=== PATIENT | female | born 1995 | race Hispanic/Latino ===

== ENCOUNTER 2024-12-15 22:29 | Emergency (ER) | payer SELFPAY ==
[2024-12-15] MEDS ORDERED: METHYLPREDNISOLONE 125 MG INJ ONE (22:41)
[2024-12-15] MEDS ORDERED: ALBUTEROL 2.5 MG/3 ML NEB SOL ONE (22:41)
[2024-12-15] MEDS ORDERED: IPRATROPIUM BROM 0.5MG/2.5ML ONE (22:41)
[2024-12-15] MEDS ORDERED: MAGNESIUM SULFATE 1 gm IVPB 1 GM/100 ML BAG IV ONE (22:42)
--- NOTE | 2024-12-16 00:15 | EDPHYS ---
Physician Documentation [facility] Name: Odalys Villalta Age: 29 yrs Sex: Female : 1995 Arrival Date: 12/15/2024 Time: 22:29 Bed 16 Private MD: ED Physician Celina Juan HPI: 12/15 22:54 This 29 yrs old Female presents to ER via Ambulatory with complaints of Asthma kb Exacerbation, Shortness Of Breath. 22:54 Pt is a 29 year old female with a history of asthma who presents for wheezing and kb shortness of breath that started one week ago. States she has been using her inhaler without relief. Denies fever, runny nose. 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 Flu vaccine is not up to date. - Infectious Disease History:: Denies. - Social history:: Smoking status: Patient denies any tobacco usage or history of. ROS: 22:53 Constitutional: As per HPI kb Exam: 22:53 Constitutional: This is a well developed, well nourished patient who is awake, alert, kb and in no acute distress. Head/Face: Normocephalic, atraumatic. ENT: Moist Mucous membranes Cardiovascular: Regular rate Skin: Warm, dry with normal turgor. Normal color. MS/ Extremity: Pulses equal, no cyanosis. Neurovascular intact. Full, normal range of motion. Neuro: Awake and alert, GCS 15, oriented to person, place, time, and situation. 22:53 Respiratory: mild respiratory distress is noted, Respirations: labored breathing, that is mild, Breath sounds: wheezing: inspiratory expiratory that is moderate, is heard diffusely, Vital Signs: 22:49 BP 143 / 99; Pulse 112; Resp 24; Temp 97.9; Pulse Ox 94% ; Weight 149.69 kg; Height 5 vc1 ft. 4 in. ; Pain 0/10; 23:24 BP 126 / 83; Pulse 84; Resp 18 S; Temp 98.8; Pulse Ox 99% on R/A; aa10 12/16 00:26 BP 138 / 90; Pulse 90; Resp 18; Temp 98.7; Pulse Ox 99% on R/A; aa10 12/15 22:49 Body Mass Index 56.64 (149.69 kg, 162.56 cm) vc1 12/15 22:49 Pain Scale: Adult vc1 MDM: 12/15 22:32 Medical Screening Exam initiated kb 22:54 Differential diagnosis: acute asthma, reactive airway, URI. Data reviewed: vital signs, kb nurses notes. 12/16 00:13 Test considered but Not performed: X-ray: CXR considered but pt states this feels kb similar to previous asthma exacerbations, wheezing is diffuse. . Counseling: I had a detailed discussion with the patient and/or guardian regarding the historical points, exam findings, and any diagnostic results supporting the discharge/admit diagnosis, the need for outpatient follow up, a family practitioner, to return to the emergency department if symptoms worsen or persist or if there are any questions or concerns that arise at home. Response to treatment: the patient's symptoms have markedly improved after treatment. 12/15 22:35 Order name: IV Start; Complete Time: 22:40 kb Administered Medications: 01:52 Discontinued: magnesium sulfate1 grams IVPB once over 1 hrs 12/15 22:53 Drug: Albuterol Inhalation 2.5 mg Inhalation once Route: Inhalation; vc1 23:21 Follow up: Response: No adverse reaction; Marked relief of symptoms 22:53 Drug: Ipratropium Inhalation Aerosol 0.5 mg Inhalation once Route: Inhalation; vc1 23:21 Follow up: Response: No adverse reaction; Marked relief of symptoms 22:57 Drug: MethylPrednisoLONE IVP 125 mg IVP once Route: IVP; Site: left antecubital; vc1 23:21 Follow up: Response: No adverse reaction; Marked relief of symptoms 22:57 Drug: Magnesium Sulfate IVPB 1 grams IVPB once over 1 hrs Route: IVPB; Infused Over: 1 vc1 hrs; Site: left antecubital; 23:21 Follow up: Response: No adverse reaction; Marked relief of symptoms 12/16 02:02 Follow up: Response: No adverse reaction; Marked relief of symptoms aa 00:21 Drug: Albuterol Inhalation 2.5 mg Inhalation once Route: Inhalation; aa10 00:25 Follow up: Response: No adverse reaction; Marked relief of symptoms; Medication aa10 administered at discharge. Disposition Summary: 12/16/24 00:14 Discharge Ordered Notes: Location: Home kb Condition: Stable kb Diagnosis - Unspecified asthma with (acute) exacerbation kb Followup: kb - With: Emergency Department - When: As needed - Reason: Worsening of condition Followup: kb - With: Private Physician - When: 2 - 3 days - Reason: Recheck today's complaints, Continuance of care, Re-evaluation by your physician Discharge Instructions: - Discharge Summary Sheet kb - Asthma, Adult, [id number] kb Forms: - Medication Reconciliation Form kb - Antibiotic Education kb - Prescription Opioid Use kb - Patient Portal Instructions kb - Leadership Thank You Letter kb Prescriptions: - Prednisone 20 mg Oral Tablet - take 1 tablet ORAL route once daily for 5 days; 5 tablet; Refills: 0, Product kb Selection Permitted - Albuterol Sulfate 2.5 mg /3 mL (0.083 %) Inhalation Solution for Nebulization - inhale 1 unit NEBULIZATION route every 8 hours As needed; 1 Unspecified; kb Refills: 0, Product Selection Permitted Signatures: Floresita Ward, JOAN GRIFFITHS-Betsy Childs RN RN vc1 Caroline Telles RN RN aa10
--- NOTE | 2024-12-16 00:15 | ER ---
Nurse's Notes [facility] Name: Odalys Villalta Age: 29 yrs Sex: Female : 1995 Arrival Date: 12/15/2024 Time: 22:29 Bed 16 Private MD: Diagnosis: Unspecified asthma with (acute) exacerbation Presentation: 12/15 22:49 Chief complaint: Patient states: asthma exacerbation times one week. Coronavirus vc1 screen: Client denies travel out of the [place] in the last 14 days. At this time, the client does not indicate any symptoms associated with coronavirus-19. Ebola Screen: Patient negative for fever greater than or equal to 101.5 degrees Fahrenheit, and additional compatible Ebola Virus Disease symptoms Patient denies exposure to infectious person. Patient denies travel to an Ebola-affected area in the 21 days before illness onset. No symptoms or risks identified at this time. Initial Sepsis Screen: Does the patient meet any 2 criteria? No. Patient's initial sepsis screen is negative. Does the patient have a suspected source of infection? No. Patient's initial sepsis screen is negative. Risk Assessment: Do you want to hurt yourself or someone else? Patient reports no desire to harm self or others. Onset of symptoms is unknown. 22:49 Method Of Arrival: Ambulatory vc1 22:49 Acuity: YOSEPH 3 vc1 Triage Assessment: 22:58 General: Appears distressed, uncomfortable, obese, Behavior is cooperative, anxious. vc1 Pain: Denies pain. EENT: No deficits noted. No signs and/or symptoms were reported regarding the EENT system. Neuro: Level of Consciousness is awake, alert, obeys commands, Oriented to person, place, time, situation, Appropriate for age. Cardiovascular: Capillary refill < 3 seconds Patient's skin is warm and dry. Rhythm is sinus tachycardia. Respiratory: Reports shortness of breath at rest labored breathing Breath sounds with wheezes bilaterally. Onset: The symptoms/episode began/occurred one week, the patient has moderate shortness of breath. GI: No deficits noted. No signs and/or symptoms were reported involving the gastrointestinal system. : No deficits noted. No signs and/or symptoms were reported regarding the genitourinary system. Derm: Skin is intact, is healthy with good turgor, Skin is dry, Skin is normal, Skin temperature is warm. Musculoskeletal: Circulation, motion, and sensation intact. Range of motion: intact in all extremities. 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 Flu vaccine is not up to date. - Infectious Disease History:: Denies. - Social history:: Smoking status: Patient denies any tobacco usage or history of. Screenin:57 [facility] ED Fall Risk Assessment (Adult) History of falling in the last 3 months, vc1 including since admission No falls in past 3 months (0 pts) Confusion or Disorientation No (0 pts) Intoxicated or Sedated No (0 pts) Impaired Gait No (0 pts) Mobility Assist Device Used No (0 pt) Altered Elimination No (0 pt) Score/Fall Risk Level 0 - 2 = Low Risk Oriented to surroundings, Maintained a safe environment, Educated pt \T\ family on fall prevention, incl call for assistance when getting out of bed. Abuse screen: Denies threats or abuse. Nutritional screening: No deficits noted. Tuberculosis screening: No symptoms or risk factors identified. Assessment: 23:22 General: Appears in no apparent distress. uncomfortable, Behavior is calm, cooperative, aa10 appropriate for age. Pain: Denies pain. Neuro: No deficits noted. Level of Consciousness is awake, alert, obeys commands, Oriented to person, place, time, situation, Appropriate for age Bottom Scrubber are equal bilaterally Moves all extremities. Speech is normal. Cardiovascular: No deficits noted. Capillary refill < 3 seconds. 23:23 Cardiovascular: No deficits noted. Capillary refill < 3 seconds. Respiratory: Airway is aa10 patent Respiratory effort is even. 23:24 Reassessment: Patient appears in no apparent distress at this time. No changes from aa10 previously documented assessment. Patient and/or family updated on plan of care and expected duration. Pain level reassessed. Patient is alert, oriented x 3, equal unlabored respirations, skin warm/dry/pink. Patient states symptoms have improved. 12/16 00:27 Reassessment: Patient appears in no apparent distress at this time. No changes from aa10 previously documented assessment. Patient and/or family updated on plan of care and expected duration. Pain level reassessed. Patient is alert, oriented x 3, equal unlabored respirations, skin warm/dry/pink. Vital Signs: 12/15 22:49 BP 143 / 99; Pulse 112; Resp 24; Temp 97.9; Pulse Ox 94% ; Weight 149.69 kg; Height 5 vc1 ft. 4 in. ; Pain 0/10; 23:24 BP 126 / 83; Pulse 84; Resp 18 S; Temp 98.8; Pulse Ox 99% on R/A; aa10 12/16 00:26 BP 138 / 90; Pulse 90; Resp 18; Temp 98.7; Pulse Ox 99% on R/A; aa10 12/15 22:49 Body Mass Index 56.64 (149.69 kg, 162.56 cm) vc1 12/15 22:49 Pain Scale: Adult vc1 ED Course: 12/15 22:31 Patient arrived in ED. im 22:31 Floresita Ward FNP-C is PHCP. kb 22:31 Celina Juan MD is Attending Physician. kb 22:50 Triage completed. vc1 22:58 Patient has correct armband on for positive identification. Bed in low position. vc1 Provided Education on: nebs. Pulse ox on. NIBP on. 23:00 Arm band placed on right wrist. vc1 23:23 No provider procedures requiring assistance completed. Initial Neb Treatment Given as aa10 ordered. Inserted saline lock: 18 gauge in left antecubital area, using aseptic technique. 12/16 01:49 IV discontinued. aa10 Administered Medications: 01:52 Discontinued: magnesium sulfate1 grams IVPB once over 1 hrs aa10 12/15 22:53 Drug: Albuterol Inhalation 2.5 mg Inhalation once Route: Inhalation; vc1 23:21 Follow up: Response: No adverse reaction; Marked relief of symptoms aa10 22:53 Drug: Ipratropium Inhalation Aerosol 0.5 mg Inhalation once Route: Inhalation; vc1 23:21 Follow up: Response: No adverse reaction; Marked relief of symptoms aa10 22:57 Drug: MethylPrednisoLONE IVP 125 mg IVP once Route: IVP; Site: left antecubital; vc1 23:21 Follow up: Response: No adverse reaction; Marked relief of symptoms aa10 22:57 Drug: Magnesium Sulfate IVPB 1 grams IVPB once over 1 hrs Route: IVPB; Infused Over: 1 vc1 hrs; Site: left antecubital; 23:21 Follow up: Response: No adverse reaction; Marked relief of symptoms aa10 12/16 02:02 Follow up: Response: No adverse reaction; Marked relief of symptoms aa10 00:21 Drug: Albuterol Inhalation 2.5 mg Inhalation once Route: Inhalation; aa10 00:25 Follow up: Response: No adverse reaction; Marked relief of symptoms; Medication aa10 administered at discharge. Medication: 12/15 23:00 VIS not applicable for this client. vc1 Outcome: 12/16 00:14 Discharge ordered by . kb 00:33 Patient left the ED. aa10 01:48 Discharged to home ambulatory, aa10 01:48 Condition: good 01:48 Discharge instructions given to patient, Instructed on discharge instructions, Signatures: Floresita Ward FNP-C TUNDE-Betsy Childs RN RN vc1 Kemi Bone Ayoku, RN RN aa10 Corrections: (The following items were deleted from the chart) 02:02 01:50 Response: No adverse reaction; Marked relief of symptoms aa10 aa10
[2024-12-16] MEDS ORDERED: ALBUTEROL 2.5 MG/3 ML NEB SOL ONE (00:20)
[2024-12-16 11:05] VITALS: O2SAT 99
[2024-12-16 11:10] VITALS: BP 138/90; TEMP 98.7
== END 2024-12-16 00:33 | disposition home or self-care (01) ==
LOC: ER 22:29
DX: J45.901 Unspecified asthma with (acute) exacerbation (principal)
CPT/HCPCS: 94640; 96374; 96375; 99284; J2919; J3475; J7613; J7644

== ENCOUNTER 2025-01-12 19:22 | Emergency (ER) | payer OTHER, SELFPAY ==
--- OUTSIDE RECORDS SUMMARY | 2025-01-12 19:27 | XMS REPORT | Continuity of Care Document ---
Author Name Unknown Address [address] [facility] [address] [place] [address] [facility] heal[facility] Address [address] 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 Name Role Phone PCP, PATIENT DOES NOT HAVE A Primary Care Physic bre Unavailable ANASTACIO HIGGINS Attending Clinician Unavailable ANASTACIO HIGGINS Attending Clinician Unavailable Anastacio Higgins DO Attending Clinician +[phone] Khalida PARMAR Attending Clinician Unavailable Khalida PARMAR Attending Clinician Unavailable Zahra Ewing MD Attending Clinician +[phone] Khalida Hope Attending Clinician [phone] Mike Almonte NP Attending Clinician +[phone] MIKE ALMONTE Attending Clinician Unavailable KALEE ROBERTSON Attending Clinician Unavailab Kalee Zamora DO Attending Clinician [phone] Pcp, Patient Does Not Have A Attending Clinician JIMMY BABCOCK Attending Clinician Unavaila Jimmy Shafer Attending Clinician [phone] ZAHRA EWING Attending Clinician Unavailable Zahra Ewing MD Attending Clinician +[phone] BREA FISH Attending Clinician Unavailab Brea Keys DO Attending Clinician [phone] CLAYTON DAVIS Attending Clinician Unavailable Clayton Mir Attending Clinician [phone] Doctor Unassigned, [place] Attending Clinician U KALEE Storey Admitting Clinician UnavailJIMMY Garner Admitting Clinician UnavailCLAYTON Israel Admitting Clinician Unavailable Payers Payer Name Policy Type Policy Number Effective Date Expirati on Date Source [facility] Nicole CLEARY [id number] 2024 00:00:00 2024 00:00:00 [place] [id number] 2021 00:00:00 Problems Condition Name Condition Details Condition Category Status Onset Date Resolution Date Last Treatment Date Treating Clinician Comments Source No known active problems No known active problems Disease [facility] Allergies, Adverse Reactions, Alerts Allergy Name Allergy Type Status Severity Reaction(s) Onset Date Inactive Date Treating Clinician Comments Source NO KNOWN ALLERGIE S Drug Class Active [facility] Social History Social Habit Start Date Stop Date Quantity Comments Source Gender identity [facility] Sexual orientation [facility] Exposure to SARS-CoV-2 (event) 2022-12-23 00:00:00 2023-01-02 06:59:00 Not sure [facility] Sex assigned at 1995 00:00:00 1995 00:00:00 [facility] Smoking Status Start Date Stop Date Source Tobacco smoking consumption unknown [facility] Medications Ordered Medication Name Filled Medication Name Start Date Stop Date Current Medication? Ordering Clinician Indication Dosage Frequency Signature (SIG) Comments Components Source ipratropium -albuteroL (DUONEB) 0.5 mg-3 mg(2.5 mg base)/3 mL nebulizer solution 3 mL 2023-11 15:15: 00 11-04 14:12 :00 No 3mL 3 mL, Inhalation , ONCE, 1 dose, On Sat11/04/24 at 0915, Routine [facility] dexAMETHaso ne (DECADRON) tablet 12 mg 2023-11 15:00: 00 11-04 14:13 :00 No 12mg 12 mg, Oral, ONCE NOW, 1 dose, On Sat11/04/24 at 0900, Routine [facility] albuterol (VENTOLIN HFA) 90 mcg/actuati on inhaler 2023-11 00:00: 00 Yes [id number] 2{puff} Inhale 2 Puffs every 6 (six) hours as needed for Wheezing or Shortness of Breath. [facility] losartan 25 mg tablet 2023-11 00:00: 00 02-03 04:59 :00 Yes [id number] 25mg Take 1 tablet by mouth in the morning for 90 days. [facility] losartan (COZAAR) tablet 25 mg 2023-11 05:45: 00 10-25 05:06 :00 No 25mg 25 mg, Oral, ONCE, 1 dose, On Sat10/24/24 at 2345, Routine [facility] dexamethaso ne (DECADRON PHOSPHATE) injection 10 mg 01-27 15:15: 00 01-27 14:12 :00 No 10mg 10 mg, Intramuscu lar, ONCE, 1 dose, On Sat01/28/24 at 1015, Routine [facility] ipratropium -albuteroL (DUONEB) 0.5 mg-3 mg(2.5 mg base)/3 mL nebulizer solution 3 mL 01-27 15:00: 00 01-27 14:07 :00 No 3mL 3 mL, Inhalation , ONCE NOW, 1 dose, On Sat01/28/24 at 1000, Routine [facility] albuterol (VENTOLIN HFA) 90 mcg/actuati on inhaler 01-27 00:00: 00 11-04 00:00 :00 No [id number] 2{puff} Inhale 2 Puffs every 6 (six) hours as needed for Wheezing or Shortness of Breath. [facility] cetirizine 10 mg tablet 01-27 00:00: 00 02-27 04:59 :00 No [id number] 10mg Take 1 tablet by mouth in the morning for 30 days. [facility] losartan-hy drochloroth iazide 50-12.5 mg per tablet 01-27 00:00: 00 02-27 04:59 :00 No [id number] 1{tbl} Take 1 tablet by mouth in the morning for 30 days. [facility] predniSONE 20 mg tablet 01-27 00:00: 00 02-02 04:59 :00 No [id number] 20mg Take 1 tablet by mouth in the morning and 1 tablet in the evening. Do all this for 5 days. [facility] dexamethaso ne (DECADRON) injection 10 mg 2022-11 21:30: 00 11-13 20:51 :00 No 10mg 10 mg, Oral, ONCE, 1 dose, On Sat11/13/23 at 1530, Routine [facility] ibuprofen (IBU) tablet 800 mg 2022-11 21:00: 00 11-13 20:52 :00 No 800mg 800 mg, Oral, ONCE, 1 dose, On Sat11/13/23 at 1500, [facility] ipratropium -albuteroL (DUONEB) 0.5 mg-3 mg(2.5 mg base)/3 mL nebulizer solution 3 mL 2022-11 20:23: 00 Yes 3mL 3 mL, Inhalation , QID, First dose on Sat11/13/23 at 1430, Until Discontinu ed, Routine [facility] benzonatate 100 mg capsule 2022-11 00:00: 00 01-27 00:00 :00 No [id number] 100mg Take 1 capsule by mouth 3 (three) times daily as needed for Cough. [facility] ipratropium -albuteroL (DUONEB) 0.5 mg-3 mg(2.5 mg base)/3 mL nebulizer solution 3 mL 07-24 16:00: 00 07-24 15:19 :00 No 3mL 3 mL, Inhalation , ONCE, 1 dose, On Sat07/24/23 at 1100, [facility] ipratropium -albuteroL (DUONEB) 0.5 mg-3 mg(2.5 mg base)/3 mL nebulizer solution 3 mL 07-24 14:15: 00 07-24 13:17 :00 No 3mL 3 mL, Inhalation , ONCE, 1 dose, On Sat07/24/23 at 0915, [facility] dexamethaso ne sod phos PF injection 10 mg 07-24 13:15: 00 07-24 13:15 :00 No 10mg 10 mg, Oral, ONCE, 1 dose, On Sat07/24/23 at 0815, 1 mL [facility] predniSONE 20 mg tablet 07-24 00:00: 00 01-27 00:00 :00 No [id number] 40mg Take 2 tablets by mouth in the morning. [facility] lisinopriL (PRINIVIL,Z ESTRIL) tablet 5 mg 06-26 19:15: 00 06-26 18:37 :00 No 5mg 5 mg, Oral, ONCE, 1 dose, On Sat06/26/23 at 1415, [facility] albuterol (PROVENTIL) 2.5 mg /3 mL (0.083 %) nebulizer solution 7.5 mg 06-26 18:45: 00 06-26 18:04 :00 No 7.5mg 7.5 mg, Inhalation , ONCE, 1 dose, On Sat06/26/23 at 1345, STAT [facility] ipratropium -albuteroL (DUONEB) 0.5 mg-3 mg(2.5 mg base)/3 mL nebulizer solution 3 mL 06-26 17:15: 00 06-26 16:07 :00 No 3mL 3 mL, Inhalation , ONCE, 1 dose, On Sat06/26/23 at 1215, Routine [facility] albuterol (PROVENTIL) 2.5 mg /3 mL (0.083 %) nebulizer solution 7.5 mg 06-26 17:15: 00 06-26 16:07 :00 No 7.5mg 7.5 mg, Inhalation , ONCE, 1 dose, On Sat06/26/23 at 1215, STAT [facility] predniSONE (DELTASONE) tablet 60 mg 06-26 16:15: 00 06-26 16:48 :00 No 60mg 60 mg, Oral, ONCE, 1 dose, On Sat06/26/23 at 1115, [facility] predniSONE 20 mg tablet 06-26 00:00: 00 Yes [id number] 3 tablets to be taken orally every morning until gone [facility] albuterol 2.5 mg /3 mL (0.083 %) nebulizer solution 06-26 00:00: 00 Yes [id number] 2.5mg Inhale 3 mL every 4 (four) hours as needed for Wheezing, Shortness of Breath or Bronchospa sm. May also nebulize one extra every 6 hours. [facility] losartan 25 mg tablet 06-26 00:00: 00 01-27 00:00 :00 No [id number] 25mg Take 1 tablet by mouth in the morning. [facility] albuterol 2.5 mg /3 mL (0.083 %) nebulizer solution 05-22 00:00: 00 Yes [id number] 2.5mg Inhale 3 mL every 4 (four) hours. May also nebulize one extra every 6 hours. [facility] albuterol 90 mcg/actuati on inhaler 05-22 00:00: 00 01-27 00:00 :00 No [id number] 2{puff} Inhale 2 Puffs every 4 (four) hours as needed for Wheezing or Shortness of Breath. [facility] methylPREDN ISolone (MEDROL, ALIYA,) 4 mg tablets 05-22 00:00: 00 01-27 00:00 :00 No [id number] Take by mouth SEE-INSTRU CTIONS. follow package directions [facility] predniSONE 10 mg tablet 2-16 00:00: 00 01-08 05:59 :00 No [id number] 50mg Take 5 tablets by mouth in the morning for 4 days. [facility] albuterol (PROVENTIL) 2.5 mg /3 mL (0.083 %) nebulizer solution 5 mg 01-02 15:15: 00 01-02 14:30 :00 No 5mg 5 mg, Inhalation , ONCE, 1 dose, On Sat01/02/23 at 0915, [facility] ipratropium (ATROVENT) 0.02 % nebulizer solution 0.5 mg 01-02 14:00: 00 01-02 13:27 :00 No .5mg 0.5 mg, Inhalation , ONCE, 1 dose, On Sat01/02/23 at 0800, [facility] albuterol (PROVENTIL) 2.5 mg /3 mL (0.083 %) nebulizer solution 7.5 mg 01-02 14:00: 00 01-02 13:27 :00 No 7.5mg 7.5 mg, Inhalation , ONCE, 1 dose, On Sat01/02/23 at 0800, [facility] predniSONE (DELTASONE) tablet 50 mg 01-02 13:15: 00 01-02 13:25 :00 No 50mg 50 mg, Oral, ONCE, 1 dose, On Sat01/02/23 at 0715, [facility] albuterol 2.5 mg /3 mL (0.083 %) nebulizer solution 01-02 00:00: 00 05-22 00:00 :00 No [id number] 2.5mg Inhale 3 mL every 4 (four) hours. May also nebulize one extra every 6 hours. [facility] ipratropium -albuteroL (DUONEB) 0.5 mg-3 mg(2.5 mg base)/3 mL nebulizer solution 3 mL 02-02 01:30: 00 02-02 00:45 :00 No 3mL 3 mL, Inhalation , ONCE, 1 dose, On [facility] 02/01/22 at 2030, Routine [facility] ipratropium -albuteroL (DUONEB) 0.5 mg-3 mg(2.5 mg base)/3 mL nebulizer solution 3 mL 02-02 00:45: 00 02-01 23:39 :00 No 3mL 3 mL, Inhalation , ONCE, 1 dose, On Maria Isabel 02/01/22 at 1945, Routine [facility] No known medications 02-01 18:33: 23 No [facility] albuterol 90 mcg/actuati on inhaler 02-01 00:00: 00 Yes [id number] 2{puff} Inhale 2 Puffs every 4 (four) hours as needed for Wheezing or Shortness of Breath. [facility] albuterol 2.5 mg /3 mL (0.083 %) nebulizer solution 02-01 00:00: 00 Yes [id number] 2.5mg Inhale 3 mL every 4 (four) hours. May also nebulize one extra every 6 hours. [facility] predniSONE 20 mg tablet 02-01 00:00: 00 02-11 04:59 :00 No [id number] Take 3 tablets by mouth every morning for 3 days, THEN 2 tablets every morning for 3 days, THEN 1 tablet every morning for 3 days. [facility] predniSONE 10 mg tablet 16 00:00: 00 01-08 05:59 :00 No [id number] 50mg Take 5 tablets by mouth daily for 4 days. [facility] ipratropium (ATROVENT) 0.02 % nebulizer solution 0.5 mg 01-02 17:15: 00 01-02 16:14 :00 No .5mg 0.5 mg, Inhalation , ONCE, 1 dose, On Sat01/02/22 at 1115, [facility] albuterol (PROVENTIL) 2.5 mg /3 mL (0.083 %) nebulizer solution 5 mg 01-02 17:15: 00 01-02 16:14 :00 No 5mg 5 mg, Inhalation , ONCE, 1 dose, On Sat01/02/22 at 1115, [facility] predniSONE (DELTASONE) tablet 50 mg 01-02 17:15: 00 01-02 16:08 :00 No 50mg 50 mg, Oral, ONCE, 1 dose, On Sat01/02/22 at 1115, [facility] albuterol 90 mcg/actuati on inhaler 01-02 00:00: 00 Yes [id number] 2{puff} Inhale 2 Puffs every 4 (four) hours as needed for Wheezing or Shortness of Breath. [facility] predniSONE 10 mg tablet 2020-11 00:00: 00 10-01 05:59 :00 No [id number] 50mg Take 5 tablets by mouth daily for 5 days. [facility] Vital Signs Vital Name Observation Time Observation Value Comments S our Systolic blood pressure 2024-11-04 14:14:00 189 mm[Hg] [facility] acute [facility] Diastolic blood pressure 2024-11-04 14:14:00 114 mm[Hg] [facility] acute hospital Heart rate 2024-11-04 14:14:00 88 /min [facility] Respiratory rate 2024-11-04 14:14:00 18 /min [facility] Oxygen saturation in Arterial blood by Pulse oximetry 2024-11-04 14:14:00 95 /min [facility] acute hospital Body temperature 2024-11-04 14:02:00 37.11 Marni [facility] Body height 2024-11-04 14:02:00 162.6 cm [facility] Body weight 2024-11-04 14:02:00 152.862 kg [facility] BMI 2024-11-04 14:02:00 57.85 kg/m2 [facility] Systolic blood pressure 2024-10-25 04:48:00 183 mm[Hg] [facility] acute hospital Diastolic blood pressure 2024-10-25 04:48:00 108 mm[Hg] General acute hospital Heart rate 2024-10-25 04:48:00 82 /min [facility] Body temperature 2024-10-25 04:48:00 36.89 Marni [facility] Respiratory rate 2024-10-25 04:48:00 18 /min [facility] Oxygen saturation in Arterial blood by Pulse oximetry 2024-10-25 04:48:00 97 /min [facility] Body height 2024-10-25 03:47:00 165.1 cm [facility] Body weight 2024-10-25 03:47:00 152.862 kg [facility] BMI 2024-10-25 03:47:00 56.08 kg/m2 [facility] Respiratory rate 2024-01-28 14:23:00 18 /min [facility] Oxygen saturation in Arterial blood by Pulse oximetry 2024-01-28 14:23:00 98 /min [facility] Systolic blood pressure 2024-01-28 13:59:00 172 mm[Hg] [facility] acute hospital Diastolic blood pressure 2024-01-28 13:59:00 105 mm[Hg] General acute hospital Heart rate 2024-01-28 13:59:00 88 /min [facility] Body temperature 2024-01-28 13:59:00 36.72 Marni [facility] Body height 2024-01-28 13:59:00 162.6 cm [facility] Body weight 2024-01-28 13:59:00 147.419 kg [facility] BMI 2024-01-28 13:59:00 55.79 kg/m2 [facility] Systolic blood pressure 2024-01-27 16:49:00 147 mm[Hg] [facility] acute hospital Diastolic blood pressure 2024-01-27 16:49:00 80 mm[Hg] General acute hospital Heart rate 2024-01-27 16:49:00 89 /min [facility] Body temperature 2024-01-27 16:49:00 36.72 Marni [facility] Respiratory rate 2024-01-27 16:49:00 16 /min [facility] Body height 2024-01-27 16:49:00 162.6 cm [facility] Body weight 2024-01-27 16:49:00 147.419 kg [facility] BMI 2024-01-27 16:49:00 55.79 kg/m2 [facility] Oxygen saturation in Arterial blood by Pulse oximetry 2024-01-27 16:49:00 99 /min [facility] Systolic blood pressure 2023-11-13 21:45:00 125 mm[Hg] [facility] acute hospital Diastolic blood pressure 2023-11-13 21:45:00 77 mm[Hg] General acute hospital Heart rate 2023-11-13 21:45:00 107 /min [facility] Respiratory rate 2023-11-13 21:45:00 16 /min [facility] Oxygen saturation in Arterial blood by Pulse oximetry 2023-11-13 21:45:00 96 /min [facility] hospital Body temperature 2023-11-13 19:21:00 37.72 Marni [facility] Body height 2023-11-13 19:21:00 162.6 cm [facility] Body weight 2023-11-13 19:21:00 146.693 kg [facility] BMI 2023-11-13 19:21:00 55.51 kg/m2 [facility] Systolic blood pressure 2023-07-24 16:00:00 158 mm[Hg] [facility] acute hospital Diastolic blood pressure 2023-07-24 16:00:00 94 mm[Hg] General acute hospital Heart rate 2023-07-24 16:00:00 95 /min [facility] Respiratory rate 2023-07-24 16:00:00 16 /min [facility] Oxygen saturation in Arterial blood by Pulse oximetry 2023-07-24 16:00:00 94 /min [facility] hospital Body temperature 2023-07-24 12:52:00 37 Marni [facility] Body weight 2023-07-24 12:50:00 145.151 kg [facility] BMI 2023-07-24 12:50:00 54.93 kg/m2 [facility] Heart rate 2023-06-26 18:50:00 100 /min [facility] Respiratory rate 2023-06-26 18:50:00 13 /min [facility] Oxygen saturation in Arterial blood by Pulse oximetry 2023-06-26 18:50:00 93 /min [facility] hospital Systolic blood pressure 2023-06-26 18:45:00 169 mm[Hg] General acute hospital Diastolic blood pressure 2023-06-26 18:45:00 121 mm[Hg] [facility] acute hospital Body temperature 2023-06-26 17:30:00 37 Marni [facility] Body height 2023-06-26 15:37:00 162.6 cm [facility] Body weight 2023-06-26 15:37:00 147.056 kg [facility] BMI 2023-06-26 15:37:00 55.65 kg/m2 [facility] Systolic blood pressure 2023-05-22 22:17:00 159 mm[Hg] General acute hospital Diastolic blood pressure 2023-05-22 22:17:00 104 mm[Hg] General acute hospital Heart rate 2023-05-22 22:17:00 87 /min [facility] Body temperature 2023-05-22 22:17:00 37.28 Marni [facility] Respiratory rate 2023-05-22 22:17:00 16 /min [facility] Body height 2023-05-22 22:17:00 165.1 cm [facility] Body weight 2023-05-22 22:17:00 144.244 kg [facility] BMI 2023-05-22 22:17:00 52.92 kg/m2 [facility] Oxygen saturation in Arterial blood by Pulse oximetry 2023-05-22 22:17:00 97 /min [facility] hospital Systolic blood pressure 2023-01-02 15:45:00 145 mm[Hg] General acute hospital Diastolic blood pressure 2023-01-02 15:45:00 78 mm[Hg] General acute hospital Heart rate 2023-01-02 15:45:00 85 /min [facility] Respiratory rate 2023-01-02 15:45:00 15 /min [facility] Oxygen saturation in Arterial blood by Pulse oximetry 2023-01-02 15:45:00 97 /min [facility] acute hospital Body temperature 2023-01-02 13:00:00 36.89 Marni [facility] Body weight 2023-01-02 13:00:00 108.863 kg [facility] BMI 2023-01-02 13:00:00 39.94 kg/m2 [facility] Respiratory rate 2022-02-01 23:39:00 20 /min [facility] Oxygen saturation in Arterial blood by Pulse oximetry 2022-02-01 23:39:00 96 /min [facility] hospital Systolic blood pressure 2022-02-01 22:07:00 158 mm[Hg] General acute hospital Diastolic blood pressure 2022-02-01 22:07:00 110 mm[Hg] General acute hospital Heart rate 2022-02-01 22:07:00 97 /min [facility] Body temperature 2022-02-01 22:07:00 37 Marni [facility] Body weight 2022-02-01 22:07:00 122.471 kg [facility] BMI 2022-02-01 22:07:00 44.93 kg/m2 [facility] Respiratory rate 2022-01-02 16:44:00 20 /min [facility] Oxygen saturation in Arterial blood by Pulse oximetry 2022-01-02 16:44:00 99 /min [facility] acute hospital Systolic blood pressure 2022-01-02 15:24:00 152 mm[Hg] General acute hospital Diastolic blood pressure 2022-01-02 15:24:00 93 mm[Hg] General acute hospital Heart rate 2022-01-02 15:24:00 102 /min [facility] Body temperature 2022-01-02 15:24:00 36.94 Marni [facility] Body weight 2022-01-02 15:24:00 122.471 kg [facility] BMI 2022-01-02 15:24:00 44.93 kg/m2 [facility] Body height 2021-09-25 14:53:00 165.1 cm [facility] Body weight 2021-09-25 14:53:00 122.471 kg [facility] BMI 2021-09-25 14:53:00 44.93 kg/m2 [facility] Systolic blood pressure 2021-09-25 14:52:00 148 mm[Hg] [facility] acute hospital Diastolic blood pressure 2021-09-25 14:52:00 109 mm[Hg] General acute hospital Heart rate 2021-09-25 14:52:00 98 /min [facility] Body temperature 2021-09-25 14:52:00 37.11 Marni [facility] Respiratory rate 2021-09-25 14:52:00 16 /min [facility] Oxygen saturation in Arterial blood by Pulse oximetry 2021-09-25 14:52:00 99 /min [facility] acute hospital Procedures Procedure Date / Time Performed Performing Clinician Source CONSENT/REFUSAL FOR DIAGNOSIS AND TREATMENT 2024-01-28 13:44:04 Doctor Unassigned, [place] [facility] ASSIGNMENT OF BENEFITS 2024-01-27 18:11:08 Docto r Unassigned, [place] [facility] XR FINGERS 2 VW LEFT 2024-01-27 17:59:00 Joe Robertson [facility] NOTICE OF PRIVACY PRACTICES 2024-01-27 16:38:40 Doctor Unassigned, [place] [facility] CONSENT/REFUSAL FOR DIAGNOSIS AND TREATMENT 2024-01-27 16:38:04 Doctor Unassigned, [place] [facility] RAPID INFLUENZA A/B 2023-11-13 20:51:00 Sanjeev Babcock [facility] COVID-19 (ID NOW RAPID TESTING) 2023-11-13 20:51:00 Jimmy Babcock [facility] XR CHEST 2 VW 2023-11-13 20:39:55 Jimmy Babcock [facility] CONSENT/REFUSAL FOR DIAGNOSIS AND TREATMENT 2023-11-13 19:17:32 Doctor Unassigned, [place] [facility] CONSENT/REFUSAL FOR DIAGNOSIS AND TREATMENT 2023-07-24 12:46:59 Doctor Unassigned, [place] [facility] CONSENT/REFUSAL FOR DIAGNOSIS AND TREATMENT 2023-06-26 15:30:15 Doctor Unassigned, [place] [facility] CONSENT/REFUSAL FOR DIAGNOSIS AND TREATMENT 2023-05-22 22:10:00 Doctor Unassigned, [place] [facility] CONSENT/REFUSAL FOR DIAGNOSIS AND TREATMENT 2023-01-02 12:32:15 Doctor Unassigned, [place] [facility] XR CHEST 1 VW 2022-02-02 00:24:00 Clayton Davis [facility] CONSENT/REFUSAL FOR DIAGNOSIS AND TREATMENT 2022-02-01 21:58:54 Doctor Unassigned, [place] [facility] MEDICATION CORRESPONDENCE 2022-01-18 06:01:00 Do ctor Unassigned, [place] [facility] CONSENT/REFUSAL FOR DIAGNOSIS AND TREATMENT 2022-01-02 15:32:34 Doctor Unassigned, [place] [facility] ASSIGNMENT OF BENEFITS 2021-09-25 14:57:08 Docto r Unassigned, [place] [facility] CONSENT/REFUSAL FOR DIAGNOSIS AND TREATMENT 2021-09-25 14:46:47 Doctor Unassigned, [place] [facility] Encounters Start Date/Time End Date/Time Encounter Type Admission Type Attending [facility] Care Department Encounter ID Source 2024-11-04 08:05:00 2024-11-04 08:45:00 Emergency ANASTACIO CASPER PHILLIP [facility] ERT [id number] [facility] 2024-11-04 08:05:00 2024-11-04 08:45:00 Emergency Anastacio Higgins [facility] [id number] [id number] [facility] 2024-10-24 21:48:00 2024-10-24 23:26:00 Emergency X Khalida PARMAR K [facility] ERT [id number] [facility] 2024-10-24 21:48:00 2024-10-24 23:26:00 Emergency Zahra Ewing K Paige [facility] [id number] [id number] [facility] 2024-01-28 09:01:00 2024-01-28 10:35:00 Emergency Mike Almonte [facility] [id number] [id number] [facility] 2024-01-28 09:01:00 2024-01-28 10:35:00 Emergency X MIKE ALMONTE [facility] ERT [id number] [facility] 2024-01-27 11:53:00 2024-01-27 14:01:00 Emergency X KALEE ROBERTSON [facility] ERT [id number] [facility] 2024-01-27 11:53:00 2024-01-27 14:01:00 Emergency Kalee Robertson [facility] [id number] [id number] [id number] [id number] [facility] 2023-11-15 00:00:00 2023-11-15 00:00:00 Patient Secure Msg Pcp, Patient Does Not Have A [facility] [id number] [id number] [id number] [facility] 2023-11-13 13:23:00 2023-11-13 16:31:00 Emergency X JIMMY BABCOCK [facility] ERT [id number] [facility] 2023-11-13 13:23:00 2023-11-13 16:31:00 Emergency Jimmy Babcock [facility] [id number] [id number] [id number] [facility] 2023-09-27 16:34:35 2023-09-27 16:34:35 Outpatient [facility] [id number] Niraj Ahn Mcdowell 2023-09-09 15:59:40 2023-09-09 15:59:40 Outpatient [facility] [id number] Niraj Ahn Adama 2023-08-30 10:30:43 2023-08-30 10:30:43 Outpatient [facility] [id number] Niraj Ahn Mcdowell 2023-07-24 07:53:00 2023-07-24 11:28:00 Emergency X ZAHRA EWING [facility] ERT [id number] [facility] 2023-07-24 07:53:00 2023-07-24 11:28:00 Emergency Zahra Ewing [facility] [id number] [id number] [facility] 2023-06-26 10:42:00 2023-06-26 14:01:00 Emergency X BREA FISH [facility] ERT [id number] [facility] 2023-06-26 10:42:00 2023-06-26 14:01:00 Emergency Brea Fish [facility] [id number] 350.1.13.10 4.2.7.2.686 [id number] [facility] 2023-05-22 17:18:00 2023-05-22 17:43:00 Emergency X ANASTACIO HIGGINS [facility] ERT [id number] [facility] 2023-05-22 17:18:00 2023-05-22 17:43:00 Emergency Anastacio Higgins [facility] 1.2840.114 350.1.13.10 4.2.7.2.686 [id number] [facility] 2023-01-02 06:37:00 2023-01-02 09:55:00 Emergency X MARCELOGINARA [facility] ERT [id number] [facility] 2023-01-02 06:37:00 2023-01-02 09:55:00 Emergency Kalee Robertson [facility] 1.840.114 350.1.13.10 4.2.7.2.686 [id number] [facility] 2022-02-01 17:13:00 2022-02-01 20:40:00 Emergency X CLAYTON DAVIS [facility] ERT [id number] [facility] 2022-02-01 17:13:00 2022-02-01 20:40:00 Emergency Clayton Davis [facility] [id number] 350.1.13.10 [id number] [id number] [facility] 2022-01-18 00:00:00 2022-01-18 00:00:00 Orders Only Doctor Unassigned, [place] [facility] 1.2840.114 350.1.13.10 4.2.7.2.686 [id number] [facility] 2022-01-02 09:27:00 2022-01-02 11:32:00 Emergency X KALEE ROBERTSON [facility] ERT [id number] [facility] 2022-01-02 09:27:00 2022-01-02 11:32:00 Emergency MarceloGinara Feliciano [facility] [id number] 350.1.13.10 4.2.7.2.686 [id number] [facility] 2021-09-25 08:51:00 2021-09-25 09:08:00 Emergency X KALEE ROBERTSON [facility] ERT [id number] [facility] 2021-09-25 08:51:00 2021-09-25 09:08:00 Emergency Kalee Robertson [facility] [id number] [id number] [id number] [id number] [facility] Results Test Description Test Time Test Comments Results Resul t Comments Source XR FINGERS 2 VW LEFT 2024-01-17 1 18:39:07 EXAM: XR FINGERS 2 VW LEFT HISTORY: 28 years-old Female with left thumb pain COMPARISON: None. FINDINGS: Radiographs of the left thumb demonstrate no acute fractures ordislocations. Joint spaces are preserved. Alignment is within normallimits. ?Osteopenia is present [facility] XR CHEST 2 VW 2023-10-19 7 20:41:57 HISTORY: SOB. TECHNIQUE: PA and lateral views of the chest are obtained. Comparison ismade with 02/01/2022 study. FINDINGS: No acute pneumonia detected. No pneumothorax or pleural effusionor pulmonary congestion. Cardiothoracic ratio of approximately 13.3/31.7 cmis consistent with normal cardiac size. CONCLUSIONS: No signs of acute cardiopulmonary disease. [facility] Notes Date/Time Note Provider Source 2024-11-04 08:01:51 Patient here for asthma and states that she is having to use her nebulizer every hour. Symptoms have been ongoing for 1 week. Patient is out of here albuterol inhaler. A Levin RN [facility] - Health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 original. Reports SOB/Asthma starting x1 week worsening today; seen x3 weeks ago here; denies cp; AAOx4; no apparent distress in triage. States "My blood pressure is high from coughing; Last breathing tx last night 1900 last inhaler use approx 10am x3 puffs Coby Mcfadden RN [facility]
[2025-01-12] MEDS ORDERED: IPRATROPIUM BROM 0.5MG/2.5ML ONE (20:56)
[2025-01-12] MEDS ORDERED: dexAMETHasone 10 MG/ML VIAL ONE (20:56)
[2025-01-12] MEDS ORDERED: ALBUTEROL 2.5 MG/3 ML NEB SOL ONE (20:56)
[2025-01-12] MEDS ORDERED: MAGNESIUM SULFATE 1 gm IVPB 1 GM/100 ML BAG IV ONE (20:56)
--- NOTE | 2025-01-12 21:57 | RAD REPORT ---
EXAMINATION: ONE VIEW CHEST XR CLINICAL INDICATION: Female, 29 years old.,COUGH TECHNIQUE: Frontal chest projection is submitted. Examination is limited by patient positioning and t echnique. COMPARISON: No prior exam. FINDINGS: The lungs are well inflated and clear. No pneumothorax or sizable effusion. The heart is normal in s ize. Mediastinal contours are unremarkable. IMPRESSION: No acute intrathoracic abnormalities.
--- NOTE | 2025-01-12 22:07 | ER ---
Nurse's Notes [facility] Name: Odalys Villalta Age: 29 yrs Sex: Female : 1995 Arrival Date: 01/12/2025 Time: 19:22 Bed DX1 Private MD: Diagnosis: Unspecified asthma with (acute) exacerbation Presentation: 01/12 19:39 Chief complaint: Patient states: SOB and wheezing X 4-5 days, hx of asthma. Coronavirus iw screen: Client presents with at least one sign or symptom that may indicate coronavirus-19. Ebola Screen: No symptoms or risks identified at this time. Initial Sepsis Screen: Does the patient meet any 2 criteria? HR > 90 bpm. Does the patient have a suspected source of infection? No. Patient's initial sepsis screen is negative. Risk Assessment: Do you want to hurt yourself or someone else? Patient reports no desire to harm self or others. Onset of symptoms was January 07, 2025. 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 - Infectious Disease History:: Denies. - Social history:: Smoking status: Patient denies any tobacco usage or history of. Screenin:30 [facility] ED Fall Risk Assessment (Adult) History of falling in the last 3 months, vc1 including since admission No falls in past 3 months (0 pts) Confusion or Disorientation No (0 pts) Intoxicated or Sedated No (0 pts) Impaired Gait No (0 pts) Mobility Assist Device Used No (0 pt) Altered Elimination No (0 pt) Score/Fall Risk Level 0 - 2 = Low Risk Oriented to surroundings, Maintained a safe environment, Educated pt \T\ family on fall prevention, incl call for assistance when getting out of bed. Abuse screen: Denies threats or abuse. Nutritional screening: No deficits noted. Tuberculosis screening: No symptoms or risk factors identified. Assessment: 20:00 General: Appears in no apparent distress. uncomfortable, obese, well groomed, well vc1 developed, well nourished, Behavior is calm, cooperative, appropriate for age. Pain: Denies pain. Neuro: Level of Consciousness is awake, alert, obeys commands, Oriented to person, place, time, situation, Appropriate for age. Cardiovascular: Capillary refill < 3 seconds Patient's skin is warm and dry. Rhythm is sinus tachycardia. Respiratory: Reports shortness of breath at rest Airway is patent Respiratory effort is even, unlabored, Breath sounds with wheezes bilaterally. GI: Abdomen is round non-distended. : No deficits noted. No signs and/or symptoms were reported regarding the genitourinary system. EENT: No deficits noted. No signs and/or symptoms were reported regarding the EENT system. Derm: Skin is intact, is healthy with good turgor, Skin is dry, Skin is normal, Skin temperature is warm. Vital Signs: 19:39 BP 149 / 106; Pulse 100; Resp 20; Temp 96.9; Pulse Ox 94% on R/A; Weight 145.15 kg; iw Height 5 ft. 4 in. ; 19:39 Body Mass Index 54.93 (145.15 kg, 162.56 cm) iw ED Course: 19:25 Patient arrived in ED. gm2 19:35 Floresita Ward FNP-C [facility] kb 19:35 Bryant Muller MD is Attending Physician. kb 19:40 Triage completed. iw 19:55 Chest Single View XRAY In Process Unspecified. EDMS 20:00 Arm band placed on right wrist. vc1 20:58 Inserted saline lock: 20 gauge in left antecubital area, using aseptic technique. Blood vk collected. Flushed with 10 mL NS. 22:46 No provider procedures requiring assistance completed. IV discontinued, bleeding vc1 controlled, No redness/swelling at site. Pressure dressing applied. Administered Medications: 21:06 Drug: Decadron - Dexamethasone IVP 10 mg IVP once Route: IVP; Site: left antecubital; vc1 21:06 Drug: Magnesium Sulfate IVPB 1 grams IVPB once over 1 hrs Route: IVPB; Infused Over: 1 vc1 hrs; Site: left antecubital; 21:06 Drug: Albuterol Inhalation 2.5 mg Inhalation once Route: Inhalation; vc1 21:06 Drug: Ipratropium Inhalation Aerosol 0.5 mg Inhalation once Route: Inhalation; vc1 Medication: 23:35 VIS not applicable for this client. vc1 Outcome: 22:06 Discharge ordered by MD. welsh 22:40 Discharged to home ambulatory, vc1 22:40 Condition: improved 22:40 Discharge instructions given to patient, Instructed on discharge instructions, follow up and referral plans. medication usage, Demonstrated understanding of instructions, follow-up care, medications, Prescriptions given X 2, 23:35 Patient left the ED. vc1 Signatures: Dispatcher [employer] EDMS Floresita Ward, ROTARY DRIER FEEDER-C ROTARY DRIER FEEDER-Gauri Michael, RN RN Betsy Hope RN RN vc1 Kalyn Cummings gm2 Korina Ordonez
--- NOTE | 2025-01-12 22:07 | EDPHYS ---
Physician Documentation [facility] Name: Odalys Villalta Age: 29 yrs Sex: Female : 1995 Arrival Date: 01/12/2025 Time: 19:22 Bed DX1 Private MD: ED Physician Bryant Muller HPI: 01/12 19:35 This 29 yrs old Female presents to ER via Unassigned with complaints of Asthma kb Exacerbation, Breathing Difficulty. 19:35 Pt is a 29 year old female who presents for shortness of breath for 4-5 days and it is kb getting worse. Has been using neb treatments at home with no relief. Denies fever. 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 - Infectious Disease History:: Denies. - Social history:: Smoking status: Patient denies any tobacco usage or history of. ROS: 19:38 Constitutional: As per HPI kb Exam: 19:38 Constitutional: This is a well developed, well nourished patient who is awake, alert, kb and in no acute distress. Head/Face: Normocephalic, atraumatic. ENT: Moist Mucous membranes Cardiovascular: Regular rate Abdomen/GI: Soft, non-tender. No distention Skin: Warm, dry with normal turgor. Normal color. MS/ Extremity: Pulses equal, no cyanosis. Neurovascular intact. Full, normal range of motion. Neuro: Awake and alert, GCS 15, oriented to person, place, time, and situation. 19:38 Respiratory: mild respiratory distress is noted, Respirations: labored breathing, that is mild, Breath sounds: wheezing: inspiratory expiratory that is moderate, is heard diffusely, Vital Signs: 19:39 BP 149 / 106; Pulse 100; Resp 20; Temp 96.9; Pulse Ox 94% on R/A; Weight 145.15 kg; iw Height 5 ft. 4 in. ; 19:39 Body Mass Index 54.93 (145.15 kg, 162.56 cm) iw MDM: 19:35 Medical Screening Exam initiated kb 22:03 Data reviewed: vital signs, nurses notes. kb 22:03 Differential diagnosis: asthma exacerbation, pneumonia, viral infection. Counseling: I kb had a detailed discussion with the patient and/or guardian regarding the historical points, exam findings, and any diagnostic results supporting the discharge/admit diagnosis, radiology results, the need for outpatient follow up, a family practitioner, to return to the emergency department if symptoms worsen or persist or if there are any questions or concerns that arise at home. 22:05 ED course: Wheezing decreased, pt is feeling better. . kb 01/12 19:37 Order name: Chest Single View XRAY; Complete Time: 22:03 kb 01/12 19:37 Order name: IV Start; Complete Time: 20:58 kb Administered Medications: 21:06 Drug: Decadron - Dexamethasone IVP 10 mg IVP once Route: IVP; Site: left antecubital; vc1 21:06 Drug: Magnesium Sulfate IVPB 1 grams IVPB once over 1 hrs Route: IVPB; Infused Over: 1 vc1 hrs; Site: left antecubital; 21:06 Drug: Albuterol Inhalation 2.5 mg Inhalation once Route: Inhalation; vc1 21:06 Drug: Ipratropium Inhalation Aerosol 0.5 mg Inhalation once Route: Inhalation; vc1 Disposition: 01/13 12:11 Co-signature as Attending Physician, Bryant Muller MD I reviewed the patient's care rt provided by the Advanced Practice Provider and agree with the diagnosis and treatment plan. Disposition Summary: 01/12/25 22:06 Discharge Ordered Notes: Location: Home kb Condition: Stable kb Diagnosis - Unspecified asthma with (acute) exacerbation kb Followup: kb - With: Emergency Department - When: As needed - Reason: Worsening of condition Followup: kb - With: Private Physician - When: 2 - 3 days - Reason: Recheck today's complaints, Continuance of care, Re-evaluation by your physician Discharge Instructions: - Discharge Summary Sheet kb - Asthma, Adult, [id number] kb Forms: - Medication Reconciliation Form kb - Antibiotic Education kb - Prescription Opioid Use kb - Patient Portal Instructions kb - Leadership Thank You Letter kb Prescriptions: - Prednisone 20 mg Oral Tablet - take 1 tablet ORAL route once daily for 5 days; 5 tablet; Refills: 0, Product kb Selection Permitted - Albuterol Sulfate 2.5 mg /3 mL (0.083 %) Inhalation Solution for Nebulization - inhale 1 unit NEBULIZATION route every 8 hours As needed; 1 Unspecified; kb Refills: 0, Product Selection Permitted Signatures: Dispatcher [employer] Floresita Byres, Gauri Guzman RN RN iw Betsy Hope RN RN vc1 Bryant Muller MD MD rt Corrections: (The following items were deleted from the chart) 01/12 19:38 19:35 Pt is a 29 year old female who presents for shortness of breath for 3 days and it kb is getting worse. Has been using neb treatments at home with no relief. . kb
[2025-01-13 00:14] VITALS: BP 149/106; TEMP 96.9; O2SAT 94
== END 2025-01-12 23:35 | disposition home or self-care (01) ==
LOC: ER 19:22
DX: J45.901 Unspecified asthma with (acute) exacerbation (principal)
CPT/HCPCS: 71045; J1100; J3475; J7613; J7644